=== PATIENT | male | born 1950 | race Caucasian/White ===

== ENCOUNTER 2019-07-16 11:21 | Observation (INO) | payer MEDICARE ==
[2019-07-16 11:54] LABS: #Basophils 0.1 thou/uL (0.0-0.2); #Eosinphils 0.1 thou/uL (0.0-0.7); #Lymphocytes 1.5 thou/uL (1.20-3.40); #Monocytes 0.5 thou/uL (0.11-0.59); %Eosinophils 1.4 % (0.0-10.0); %Lymphocytes 29.1 % (21.0-51.0); %Neutrophils 59.6 % (42.0-75.0); Hemoglobin 15.3 g/dL (14.0-18.0); Mean Corpuscular HGB CONC 33.7 g/dL (32.0-36.0); Mean Corpuscular Hemoglobin 31.5 pg (27.0-31.0); Mean Corpuscular Volume 93.7 fL (78.0-98.0); Mean Platelet Volume 6.2 fL (7.4-10.4); Platelet Count 241 thou/uL (130-400); RBC Distribution Width 11.4 % (11.5-14.5); Red Blood Cell (RBC) Count 4.84 mill/uL (4.70-6.10)
--- NOTE | 2019-07-16 12:13 | RAD ---
FRONTAL VIEW CHEST: Date: 07/16/19 COMPARISON: 08/17/15. INDICATION: Chest pain, pressure, dizziness. FINDINGS: There is no focal consolidation. Cardiac silhouette is within normal limits of size for portable tech nique. There is a focal contour abnormality of the partially imaged, medial aspect of the proximal le ft humerus, incompletely assessed on the basis of this exam. There is vascular calcification. IMPRESSION: 1. No focal consolidation. 2. Osseous excrescence/contour deformity of the medial aspect of proximal left humerus. This is inco mpletely evaluated on the basis of this exam. As necessary, this may be further assessed with dedicat ed left shoulder radiograph series. POS: [facility]
[2019-07-16 12:15] LABS: ALT (SGPT) 16 U/L (8-55); AST (SGOT) 19 U/L (5-34); Albumin 4.5 g/dL (3.4-4.8); Alkaline Phosphatase 81 U/L (40-110); Anion Gap 11 mmol/L (10-20); BUN (Urea Nitrogen) 16 mg/dL (8.4-25.7); Bilirubin, Total 0.6 mg/dL (0.2-1.2); CK (CPK) 139 U/L (30-200); Calc. Creatinine Clearance 0 mL/min (70-130); Calcium 9.5 mg/dL (7.8-10.44); Carbon Dioxide 27 mmol/L (23-31); Chloride 101 mmol/L (98-107); Estimated GFR-MDRD 68; Globulin 3.1 g/dL (2.4-3.5); Glucose 94 mg/dL (80-115); Lipase 37 U/L (8-78); Potassium 4.4 mmol/L (3.5-5.1); Protein, Total 7.6 g/dL (5.8-8.1); Sodium 135 mmol/L (136-145)
[2019-07-16] MEDS ORDERED: Aspirin Chewable 81 MG TAB ONE (12:25)
--- NOTE | 2019-07-16 14:28 | HP ---
PRIMARY CARE PHYSICIAN: Franck Raya MD REASON FOR ADMISSION: Chest pain. HISTORY OF PRESENT ILLNESS: This is a 68-year-old male, who has underlying history of dyslipidemia, gastroesophageal reflux disease, hypertension but not on any specific treatment, who was brought to emergency room for evaluation of chest pain. The patient reports that his chest discomfort started about 10 days ago. He predominantly feels discomfort in his epigastric region. He attributes epigastric discomfort as related with his gastroesophageal reflux disease, but for last 10 days, he noticed that this discomfort was radiating to left side of his chest, sometimes right side of his chest, and sometimes he gets intermittently left arm pain. He denies any associated nausea, vomiting, diaphoresis, or shortness of breath, that episode lasted periodically for a few minutes and subsided by itself. He denies any relation of discomfort with food, respiration, activity, or any position. Because of these symptoms, the patient made appointment with his primary care physician on last Friday. At that time, primary care physician did EKG, which reportedly showed some abnormality and that is why primary care physician made appointment for Cardiology, and the patient is going to see Cardiology next week on . Since the patient referred to Cardiology, he is experiencing some discomfort with walking. The patient is not sure whether it is related with his anxiety or acid reflux and that is why he decided to come to emergency room for evaluation. Today, in the emergency room, his chest x-ray was unremarkable. EKG was normal. Routine blood test including cardiac enzymes was negative. EKG only showed mild sinus bradycardia and incomplete right bundle-branch block. The patient is being admitted for rule out ACS. PAST MEDICAL HISTORY: History of hypertension but not on any treatment, dyslipidemia, and gastroesophageal reflux disease. PAST SURGICAL HISTORY: Back surgery, hernia repair. PAST PSYCHIATRIC HISTORY: Reviewed and negative. SOCIAL HISTORY: The patient is . He drinks alcohol occasionally. He denies any smoking. He denies any other illicit drug abuse. FAMILY HISTORY: No strong family history of premature coronary artery disease, stroke, or cancer. ALLERGIES: CODEINE. CURRENT HOME MEDICATIONS: 1. Lipitor 20 mg daily. 2. Protonix 40 mg p.o. daily. 3. Aspirin 81 mg daily. EMERGENCY ROOM COURSE: The patient received aspirin 325 mg. REVIEW OF SYSTEMS: CONSTITUTIONAL: Negative for weight loss or gain, ability to conduct usual activities. SKIN: Negative for rash, itching. EYES: Negative for double vision, pain. ENT/MOUTH: Negative for nose bleeding, neck stiffness, pain, tenderness. CARDIOVASCULAR: Negative for palpitations, dyspnea on exertion, orthopnea. RESPIRATORY: Negative for shortness of breath, wheezing, cough, hemoptysis, fever or night sweats. GASTROINTESTINAL: Negative for poor appetite, abdominal pain, heartburn, nausea, vomiting, constipation, or diarrhea. GENITOURINARY: Negative for urgency, frequency, dysuria, nocturia. MUSCULOSKELETAL: Negative for pain, swelling. NEUROLOGIC/PSYCHIATRIC: Negative for anxiety, depression. ALLERGY/IMMUNOLOGIC: Negative for skin rash, bleeding tendency. Please see my HPI for pertinent positives and negatives. All other review of systems reviewed and negative except as mentioned in HPI. PHYSICAL EXAMINATION: VITAL SIGNS: On arrival, blood pressure 165/72, pulse 59, respiratory rate 16, temperature 98.1, saturation 100% on room air. Weight 83.1 kg. GENERAL: The patient is currently alert and awake, in no obvious acute distress. HEENT: Head; normocephalic, atraumatic. Eyes; pupils round and reactive to light. Extraocular muscle intact. ENT; oropharynx within normal limits, moist mucous membranes, no oral lesion, no pharyngeal erythema, no exudate. NECK: Supple. No JVD. No thyromegaly. No carotid bruit. No jugular venous distention. LUNGS: Clear to auscultation without any rhonchi or rales. CARDIAC: S1 and S2, regular without any murmur, no gallop, no rub. ABDOMEN: Soft. Bowel sounds present. Nontender. Nondistended. No organomegaly. No mass. No suprapubic tenderness. BACK: Unremarkable. No CVA tenderness. EXTREMITIES: Upper extremities, passive movement of all joints is normal. Lower extremities; no edema, good distal pulsation, no calf tenderness. PSYCHIATRIC: Normal affect. NEUROLOGIC: Nonfocal examination. SIGNIFICANT LABORATORY DATA: CBC; WBC 5.0, hemoglobin 15.3, platelets 241. BMP; sodium 135, potassium 4.4, chloride 101, carbon dioxide 27, BUN 16, creatinine 1.08, glucose 94, calcium 9.5. LFT; AST 19, ALT 18, alkaline phosphatase 81, albumin 4.5, and lipase 37. Troponin-I 0.012. CK 139. EKG showing sinus bradycardia, incomplete right bundle-branch block pattern. Chest x-ray based on my review, no acute cardiopulmonary process. ASSESSMENT AND PLAN AND IMPRESSION: 1. Chest pain. The patient's chest pain description is atypical. He has HEART score of 4 with his hypertension, dyslipidemia, and family history as well as his age and that is why, we will keep him in the hospital for observation. We will do serial cardiac enzymes x3. We will check lipid profile for risk stratification. Meanwhile, we will continue with aspirin 325 mg p.o. daily, nitroglycerin patch q.8 hourly, and we will perform exercise Cardiolite stress test tomorrow morning for diagnostic reason. I am suspecting his discomfort probably related with acid reflux versus anxiety neurosis. 2. Dyslipidemia. Continue Lipitor 20 mg p.o. at bedtime and check lipid profile tomorrow. 3. Hypertension, not on any treatment. We will continue with nitroglycerin patch at this point, and depending upon his blood pressure, we will decide about antihypertensive medication. 4. Gastroesophageal reflux disease. We will continue Protonix 40 mg p.o. daily. 5. Deep venous thrombosis prophylaxis, not needed because we are expecting discharge in 24 hours. 6. GI prophylaxis, Protonix 40 mg p.o. daily. 7. Code status; the patient is full code, the patient's is surrogate decision maker. 8. Disposition plan, based on clinical course and stress test result. Plan of care discussed with the patient and family member at bedside in the emergency room. Job ID: [id number]
[2019-07-16 15:41] LABS: Troponin I Less than 0.010 ng/mL (< 0.028)
[2019-07-16] MEDS ORDERED: Loperamide HCl 2 MG CAP PO PRN (16:32)
[2019-07-16] MEDS ORDERED: Ondansetron PF 4 MG/2 ML Vial IVP PRN (16:32)
[2019-07-16] MEDS ORDERED: Sodium Chloride 0.65% Nasal 44 ML BOT EA NARE PRN (16:32)
[2019-07-16] MEDS ORDERED: Calcium Carbonate 500 MG ChewTAB PO PRN (16:32)
[2019-07-16] MEDS ORDERED: hydrALAZINE 20 MG/ML VIAL SLOW IVP PRN (16:32)
[2019-07-16] MEDS ORDERED: Senokot S 8.6-50 MG TAB PO PRN (16:32)
[2019-07-16] MEDS ORDERED: Nitroglycerin 0.4 MG TAB (25 Tab Bottle) PO PRN (16:32)
[2019-07-16] MEDS ORDERED: Cepastat Lozenges 1 LOZ PO PRN (16:32)
[2019-07-16] MEDS ORDERED: Ondansetron ODT 4 MG TAB PO PRN (16:32)
[2019-07-16] MEDS ORDERED: Bisacodyl 10 MG SUPP PR PRN (16:32)
[2019-07-16] MEDS ORDERED: Loratadine 10 MG TAB PO PRN (16:32)
[2019-07-16] MEDS ORDERED: Diabetic Tussin 200 MG/10 ML UDCUP PO PRN (16:32)
[2019-07-16] MEDS ORDERED: Zolpidem Tartrate 5 MG TAB PO PRN (16:32)
[2019-07-16] MEDS ORDERED: Artificial Tears 18 DROP/0.9 ML EA EYE PRN (16:32)
[2019-07-16] MEDS ORDERED: Acetaminophen 325 MG TAB PO PRN (16:32)
[2019-07-16 16:39] VITALS: BMI 24.0
[2019-07-16 18:21] LABS: Troponin I Less than 0.010 ng/mL (< 0.028)
[2019-07-16] MEDS: Nitroglycerin 2% Ointment 1 INCH/1 GM Packet TOP SCH (18:32)
[2019-07-16] MEDS ORDERED: Atorvastatin Calcium 20 MG TAB PO SCH (21:00)
[2019-07-17] MEDS: Nitroglycerin 2% Ointment 1 INCH/1 GM Packet TOP SCH ×2 (02:55→07:50)
[2019-07-17 04:41] LABS: Cardiac Risk 3.3 (Less than 4.5)
[2019-07-17] MEDS ORDERED: Aspirin 325 mg Enteric Coated Tablet PO SCH (09:00)
--- NOTE | 2019-07-17 11:21 | NM ---
Radionucleotide stress and rest myocardial perfusion scan with CT attenuation correction and SPECT im aging Left ventricular wall motion evaluation and ejection fraction HISTORY: Chest pain. FINDINGS: Adenosine protocol. Homogeneous uptake of radiotracer throughout the left ventricular myoca rdium. No focal perfusion defect or reversibility. QGS analysis of gated SPECT images shows relative hypokinesis of the septum. Ejection fraction calculated at 67%. IMPRESSION: Normal myocardial perfusion scan. Normal LVEF.
[2019-07-17 12:08] VITALS: BP 164/90; TEMP 97.6
[2019-07-17] MEDS ORDERED: ADENOSINE 60 MG/20 ML VIAL ONE (19:42)
--- NOTE | 2019-07-18 00:23 | DIS ---
DATE OF ADMISSION: 07/16/2019 DATE OF DISCHARGE: 07/17/2019 DISCHARGE DISPOSITION: Home. FOLLOWUP: 1. Follow up with Dr. Franck Raya in 1 week. 2. The patient has a scheduled appointment with Dr. Rivera next week. ALLERGIES: CODEINE. DISCHARGE MEDICATIONS: Same as admission medications. BRIEF HOSPITAL COURSE: The patient is a 68-year-old male with hypertension and hyperlipidemia, presented to the emergency room with chest discomfort. Please refer to the history and physical for further details. The patient was admitted to the hospital with a diagnosis of chest discomfort, rule out acute coronary syndrome. His serial troponins were negative. His HEART score was 4. He underwent a Cardiolite stress test that was negative for reversible ischemia. However, it showed relative hypokinesis of the septum. He has a followup appointment with Dr. Rivera as outpatient. He is chest pain free at this time. DIAGNOSTIC TESTS: Fasting lipid profile showed triglycerides 74, cholesterol 137, LDL 81, HDL 41. Sodium 135. Troponins were negative. FINAL DIAGNOSES: 1. Chest discomfort, acute coronary syndrome ruled out. 2. No reversible ischemia on the stress test. 3. Dyslipidemia. 4. Hypertension. 5. Mild hyponatremia. 6. Gastroesophageal reflux disease. 7. Chronic kidney disease stage 2. PLAN: Plan of care was discussed with the patient in detail. He stated understanding. Job ID: [id number]
--- NOTE | 2019-07-24 12:44 | EKG ---
Test Reason : Blood Pressure : / mmHG Vent. Rate : 054 BPM Atrial Rate : 054 BPM P-R Int : 202 ms QRS Dur : 094 ms QT Int : 380 ms P-R-T Axes : 049 093 084 degrees QTc Int : 360 ms Sinus bradycardia with Premature atrial complexes Rightward axis Incomplete right bundle branch block Borderline ECG Confirmed by GABRIEL HARDIN D.O. ([id number]), newspaper editor VIRGINIA GONZALEZ ([id number]) on 07/24/2019 12:44:29 PM Referred By: Confirmed By:GABRIEL HARDIN D.O.
== END 2019-07-17 14:16 | disposition home or self-care (01) ==
LOC: ERS 11:21 → 2SW 16:30
PROVIDERS: ADMIT Internal Medicine; ATTEND Internal Medicine
DX: R07.89 Other chest pain (principal); I12.9 Hypertensive chronic kidney disease with stage 1 through stage 4 chronic kidney disease, or unspecified chronic kidney disease; N18.2 Chronic kidney disease, stage 2 (mild); K21.9 Gastro-esophageal reflux disease without esophagitis; E78.5 Hyperlipidemia, unspecified; E87.1 Hypo-osmolality and hyponatremia; Z79.82 Long term (current) use of aspirin; Z79.899 Other long term (current) drug therapy; Z88.5 Allergy status to narcotic agent
CPT/HCPCS: 71045; 78452; 80053; 80061; 82550; 83690; 84484 ×2; 85025; 93005; 93017; 99285; A9500; G0378 ×3; 36415; J0153

== ENCOUNTER 2019-08-19 09:16 | Outpatient (CLI) | payer MEDICARE ==
--- NOTE | 2019-08-19 11:35 | ULT ---
ULTRASOUND ABDOMEN LIMITED: (RIGHT UPPER QUADRANT) DATE: 08/19/19 HISTORY: 68-year-old male with epigastric abdominal pain. FINDINGS: The gallbladder has normal wall thickness and has no evidence of gallstones or sludge. The hepatic e chogenicity is normal. The right kidney has normal echogenicity and has no hydronephrosis. The panc reas is visualized, although ultrasound is relatively insensitive for pancreatic pathology compared t o CT and MRI. There is no biliary dilation. The common duct caliber is 3 mm. IMPRESSION: Normal. jn [] POS: [facility]
== END 2019-08-19 09:17 | disposition home or self-care (01) ==
LOC: ULT 09:16
PROVIDERS: ATTEND Physician Assistant Medical
DX: R10.13 Epigastric pain (principal); R14.0 Abdominal distension (gaseous)
CPT/HCPCS: 76705

== ENCOUNTER 2023-10-09 16:15 | Emergency (ER) | payer MEDICARE ==
[2023-10-09 16:38] LABS: #Basophils 0.1 thou/uL (0.0-0.2); #Eosinphils 0.1 thou/uL (0.0-0.7); #Monocytes 0.7 thou/uL (0.11-0.59); #Neutrophils 3.5 thou/uL (1.40-6.50); %Basophils 0.9 % (0.0-1.0); %Eosinophils 1.6 % (0.0-10.0); %Lymphocytes 31.7 % (21.0-51.0); %Monocytes 11.2 % (0.0-10.0); %Neutrophils 54.4 % (42.0-75.0); Hematocrit 45.3 % (42.0-52.0); Hemoglobin 15.6 g/dL (14.0-18.0); Mean Corpuscular HGB CONC 34.4 g/dL (32.0-36.0); Mean Corpuscular Hemoglobin 31.6 pg (27.0-31.0); Mean Corpuscular Volume 91.9 fl (78.0-98.0); Mean Platelet Volume 8.6 fL (7.4-10.4); Platelet Count 236 10x3/uL (130-400); RBC Distribution Width 12.2 % (11.5-14.5); Red Blood Cell (RBC) Count 4.93 mill/uL (4.70-6.10); White Blood Cell (WBC) Count 6.4 10x3/uL (4.8-10.8)
[2023-10-09 17:00] LABS: Bacteria/HPF None Seen HPF (None Seen); Bilirubin Negative (Negative); Blood, Urine Negative (Negative); CAUTI Indications for Culture Alt mental st,lethar; Clarity Clear (Clear); Glucose, Urine (Dipstick) Normal (Negative); Ketone, Urine Negative (Negative); Leukocyte Negative Leu/uL (Negative); Nitrite Negative (Negative); Protein, Urine (Dipstick) Negative (Neg-Trace); RBC/HPF 0-3 HPF (0-3); Squamous Epithelial 0-3 HPF (0-3); Urobilinogen Normal mg/dL (Less than 2); WBC/HPF None Seen HPF (0-3)
[2023-10-09 17:02] LABS: Urine Culture Reflex No No
[2023-10-09 17:06] LABS: Troponin I Less than 0.010 ng/mL (< 0.028)
[2023-10-09] MEDS ORDERED: LORazepam 2 MG/ML SYR.(CARPUJECT) ONE (17:09)
[2023-10-09 17:37] LABS: Prothrombin Time 13.3 sec (12.0-14.7)
[2023-10-09 18:20] LABS: Albumin 4.1 g/dL (3.4-4.8)
[2023-10-09 18:21] LABS: Chloride 103 mmol/L (98-107); Potassium 3.7 mmol/L (3.5-5.1); Sodium 138 mmol/L (136-145)
[2023-10-09 18:22] LABS: Calcium 9.1 mg/dL (7.8-10.44)
[2023-10-09 18:23] LABS: Globulin 3.1 g/dL (2.4-3.5); Glucose 88 mg/dL (83-110); Protein, Total 7.2 g/dL (5.8-8.1)
[2023-10-09 18:24] LABS: Anion Gap 13 mmol/L (10-20); Bilirubin, Total 0.6 mg/dL (0.2-1.2); Carbon Dioxide 26 mmol/L (23-31)
[2023-10-09 18:25] LABS: Alkaline Phosphatase 80 U/L (40-110)
[2023-10-09 18:26] LABS: Calc. Creatinine Clearance 0 mL/min (70-130); Estimated GFR 78
[2023-10-09 18:27] LABS: BUN (Urea Nitrogen) 20 mg/dL (8.4-25.7)
[2023-10-09 18:28] LABS: AST (SGOT) 27 U/L (5-34); Magnesium 2.1 mg/dL (1.6-2.6)
[2023-10-09 18:29] LABS: ALT (SGPT) 20 U/L (8-55)
== END 2023-10-09 23:05 | disposition home or self-care (01) ==
LOC: ERS 16:15
DX: I48.91 Unspecified atrial fibrillation (principal); E78.5 Hyperlipidemia, unspecified; Z79.01 Long term (current) use of anticoagulants; Z79.899 Other long term (current) drug therapy
CPT/HCPCS: 71045; 81001; 83735; 83880; 84484; 85610; 85730; 93005; 96374; 99285; J2060; 36415; 80053; 84443; 85025

== ENCOUNTER 2023-11-20 13:31 | Emergency (ER) | payer MEDICARE ==
[2023-11-20 14:07] LABS: #Basophils 0.1 thou/uL (0.0-0.2); #Eosinphils 0.1 thou/uL (0.0-0.7); #Monocytes 0.5 thou/uL (0.11-0.59); #Neutrophils 3.2 thou/uL (1.40-6.50); %Basophils 1.3 % (0.0-1.0); %Eosinophils 1.6 % (0.0-10.0); %Lymphocytes 30.5 % (21.0-51.0); %Monocytes 8.8 % (0.0-10.0); %Neutrophils 57.6 % (42.0-75.0); Hematocrit 42.1 % (42.0-52.0); Hemoglobin 14.3 g/dL (14.0-18.0); Mean Corpuscular Hemoglobin 32.1 pg (27.0-31.0); Mean Corpuscular Volume 94.6 fl (78.0-98.0); Mean Platelet Volume 8.2 fL (7.4-10.4); Platelet Count 241 10x3/uL (130-400); RBC Distribution Width 12.3 % (11.5-14.5); Red Blood Cell (RBC) Count 4.45 mill/uL (4.70-6.10); White Blood Cell (WBC) Count 5.5 10x3/uL (4.8-10.8)
[2023-11-20 14:32] LABS: ALT (SGPT) 17 U/L (8-55); AST (SGOT) 20 U/L (5-34); Albumin 4.2 g/dL (3.4-4.8); Alkaline Phosphatase 75 U/L (40-110); Anion Gap 10 mmol/L (10-20); BUN (Urea Nitrogen) 20 mg/dL (8.4-25.7); Bilirubin, Total 0.7 mg/dL (0.2-1.2); Calc. Creatinine Clearance 0 mL/min (70-130); Calcium 9.5 mg/dL (7.8-10.44); Carbon Dioxide 30 mmol/L (23-31); Chloride 101 mmol/L (98-107); Estimated GFR 68; Globulin 2.9 g/dL (2.4-3.5); Glucose 117 mg/dL (83-110); Potassium 4.9 mmol/L (3.5-5.1); Protein, Total 7.1 g/dL (5.8-8.1); Sodium 136 mmol/L (136-145)
[2023-11-20 14:35] LABS: Troponin I Less than 0.010 ng/mL (< 0.028)
[2023-11-20 16:40] LABS: Troponin I Less than 0.010 ng/mL (< 0.028)
== END 2023-11-20 16:48 | disposition home or self-care (01) ==
LOC: ERS 13:31
DX: R07.89 Other chest pain (principal); R77.8 Other specified abnormalities of plasma proteins; I48.91 Unspecified atrial fibrillation; E78.5 Hyperlipidemia, unspecified; I10 Essential (primary) hypertension; Z55.6 Problems related to health literacy; Z79.01 Long term (current) use of anticoagulants; Z87.891 Personal history of nicotine dependence; Z79.899 Other long term (current) drug therapy
CPT/HCPCS: 36415; 71045; 80053; 84484; 85025; 93005